=== PATIENT | female | born 1985 | race Caucasian/White ===

== ENCOUNTER 2021-12-10 20:40 | Emergency (ER) | payer SELFPAY ==
[~2021-12-10] VITALS: Ht 177.8 cm; Wt 97.2 kg
[2021-12-10 20:47] VITALS: BP 140/75
--- NOTE | 2021-12-10 20:50 | NUR ---
PT SENT TO LOBBY.
--- NOTE | 2021-12-10 21:10 | NUR ---
PT AMBULATED TO BED #4
--- NOTE | 2021-12-10 21:33 | NUR ---
36 Y/O FEMALE BIBS FROM HOME, C/O TOOTHACHE X4 DAYS. PT HAS SEEN PCP AND WAS PRESCRIBED PCN AND AN NSAID. PT STATES THAT THE MEDICATION ONLY INCREASED THE PAIN AND SWELLING. PT HAS A "BORKEN TOOTH" AND IS A 10/10 PAIN, DIFFICULT TO EAT OR DRINK. NO REDNESS, BRUISING, PUS, FOUL ODOR, OR TRAUMA. PT HAS DISCOLORATION TO THE TOOTH AND SWELLING. DENIES PMH NKA MED: RECENT PCN AND NSAID
[2021-12-10] MEDS ORDERED: KETOROLAC 30 MG/ML VIAL IVP ONE (21:45)
[2021-12-10] MEDS ORDERED: AMOXIL/CLAVULANATE 875/125 MG 1 TAB PO ONE (21:45)
[2021-12-10] MEDS ORDERED: BUPIVACAINE-MPF 0.5% 30 ML VIAL INJ ONE (21:45)
[2021-12-10] MEDS ORDERED: KETOROLAC 30 MG/ML VIAL IM ONE (22:10)
[2021-12-10] MEDS ORDERED: HYDR-5080 PO (22:27)
[2021-12-10] MEDS ORDERED: AMOX1TAB8 PO (22:27)
--- NOTE | 2021-12-10 22:33 | NUR ---
ER AT BEDSIDE
[2021-12-10 22:48] VITALS: BP 136/70
--- NOTE | 2021-12-10 22:49 | NUR ---
Patient discharged with v/s stable. Written and verbal after care instructions given and explained. Patient alert, oriented and verbalized understanding of instructions. Ambulatory with steady gait. All questions addressed prior to discharge. ID band removed. Patient advised to follow up with PMD. Rx of AUGMENTIN AND NORCO given. Patient educated on indication of medication including possible reaction and side effects. Opportunity to ask questions provided and answered. VSS, A/OX4, AMBULATORY, UNLABORED BREATHING, AND CALM DEMEANOR.
== END 2021-12-10 22:47 | disposition home or self-care (01) ==
LOC: MED 20:40
DX: K08.89 Other specified disorders of teeth and supporting structures (principal); H66.91 Otitis media, unspecified, right ear; F17.200 Nicotine dependence, unspecified, uncomplicated; Z72.89 Other problems related to lifestyle
CPT/HCPCS: 64400; 96372; 99284; J1885; J3490

== ENCOUNTER 2021-12-13 09:11 | Emergency (ER) | payer SELFPAY ==
[~2021-12-13] VITALS: Ht 177.8 cm; Wt 97.5 kg
[~2021-12-13 09:11] MED LIST: AMOX1TAB8 PO; HYDR-5080 PO
[2021-12-13 09:21] VITALS: BP 156/93
--- NOTE | 2021-12-13 09:21 | NUR ---
AMBULATED TO BED 12
--- NOTE | 2021-12-13 09:38 | NUR ---
36/F C/O RIGHT SIDED TOOTHACHE SINCE SATURDAY, STATES SHE WAS SEEN AT ANOTHER ED ON SATURDAY AND GIVEN PENICILLIN AND MOTRIN, SEEN HERE SATURDAY AND GIVEN AUGMENTIN, REPORTS PAIN AND SWELLING HAS WORSENED. UNABLE TO SEE A DENTIST D/T NO INSURANCE, DENIES FEVERS AND CHILLS. RIGHT SIDE OF FACE APPEARS SWOLLEN, TENDER TO TOUCH, STATING PAIN 10/10 ACHING PAIN THAT IS RADIATING DOWN TO NECK.
[2021-12-13 10:27] LABS: BASOPHILS % (AUTO) 0.5 % (0.0-2.0); EOSINOPHILS # (AUTO) 0.1 K/uL (0-0.4); EOSINOPHILS % (AUTO) 1.1 % (0.0-4.0); HEMATOCRIT 37.8 % (36-48); HEMOGLOBIN 12.7 g/dL (12.0-16.0); LYMPHOCYTES # (AUTO) 1.8 K/uL (2.5-16.5); LYMPHOCYTES % (AUTO) 18.4 % (20.5-51.1); MEAN CORPUSCULAR HEMOGLOBIN 30 pg (27-31); MEAN CORPUSCULAR HGB CONC 34 g/dL (33-37); MEAN CORPUSCULAR VOLUME 88.6 fL (80-94); MONOCYTES # (AUTO) 0.6 K/uL (0.8-1.0); MONOCYTES % (AUTO) 6.4 % (1.7-9.3); NEUTROPHILS # (AUTO) 7.2 K/uL (1.8-7.7); NEUTROPHILS % (AUTO) 73.6 % (42.2-75.2); PLATELET COUNT (AUTO) 263 K/uL (140-450); RED BLOOD CELL COUNT(AUTO) 4.26 MIL/uL (4.20-5.40); RED CELL DISTRIBUTION WIDTH 14.2 % (11.6-13.7); WHITE BLOOD COUNT (AUTO) 9.8 K/uL (4.8-10.8)
[2021-12-13 10:48] LABS: ALBUMIN 3.2 g/dL (3.4-5.0); ANION GAP 11.1 (8-16); CREATININE 0.8 mg/dL (0.6-1.3); POTASSIUM 4.1 mmol/L (3.5-5.1); TOTAL BILIRUBIN 0.3 mg/dL (0.0-1.0)
--- NOTE | 2021-12-13 10:56 | NUR ---
pt taken to ct via [facility]
--- NOTE | 2021-12-13 11:07 | NUR ---
PT RETURNED FROM CT
[2021-12-13] MEDS ORDERED: KETOROLAC 30 MG/ML VIAL IVP ONE (11:55)
[2021-12-13] MEDS ORDERED: HYDR-5080 PO (12:10)
--- NOTE | 2021-12-13 12:23 | NUR ---
IV removed, catheter intact and site benign. Applied folded 4x4 gauze and tape to stop bleeding.
[2021-12-13 12:41] VITALS: BP 130/81
--- NOTE | 2021-12-13 12:42 | NUR ---
Patient discharged with v/s stable. Written and verbal after care instructions ABOUT DENTAL ABSCESS, CELLULITIS given and explained. Patient alert, oriented and verbalized understanding of instructions. Ambulatory with steady gait. All questions addressed prior to discharge. ID band removed. Patient advised to follow up with PMD. Rx of NORCO 7-325 given. Patient educated on indication of medication including possible reaction and side effects. Opportunity to ask questions provided and answered.
== END 2021-12-13 12:42 | disposition home or self-care (01) ==
LOC: MED 09:11
DX: K02.9 Dental caries, unspecified (principal); K04.7 Periapical abscess without sinus; M60.80 Other myositis, unspecified site; L03.211 Cellulitis of face; F17.210 Nicotine dependence, cigarettes, uncomplicated; Z79.899 Other long term (current) drug therapy
CPT/HCPCS: 36415; 70492; 80053; 81025; 85025; 96374; 99285; J1885; Q9967